=== PATIENT | male | born 1935 | race Caucasian/White ===

== ENCOUNTER → 2017-11-26 | Outpatient (CLI) | payer MEDICARE ==
--- NOTE | 2017-11-26 12:01 | KCIC ---
MRI of the cervical spine without contrast 11/26/2017 CLINICAL HISTORY: Imbalance with frequent falls for the last year. TECHNIQUE: Unenhanced T1-weighted, T2-weighted and inversion recovery sagittal and gradient echo and T2-weighted axial images of the cervical spine were obtained. FINDINGS: Mild lateral curvature of the cervical spine is seen convex to the right. There is reversal of the normal cervical lordosis. Degenerative signal changes are seen involving all of the disks of the cervical spine. Degenerative signal changes are seen within the marrow surrounding these discs. Loss of height of the C3-4, C4-5, C5-6 and C6-7 discs is noted. No area of abnormal signal intensity is seen involving the cervical spinal cord. At the C2-3 disc space there is a minimal generalized disc bulge. Degenerative changes are seen involving the uncovertebral and facet joints bilaterally. These findings do not result in significant central spinal canal or neural foraminal stenosis. At the C3-4 disc space there is a mild to moderate generalized disc bulge. Degenerative changes are seen involving the uncovertebral and facet joints bilaterally. These findings efface the anterior CSF resulting in mild central spinal canal stenosis without evidence of cord impingement. Mild to moderate bilateral neural foraminal stenosis is seen. At the C4-5 disc space there is a mild to moderate generalized disc bulge. Degenerative changes are seen involving the uncovertebral and facet joints bilaterally. These findings when combine efface the anterior and posterior CSF resulting in mild central spinal canal stenosis without evidence of cord impingement. Mild to moderate bilateral neural foraminal stenosis is seen. At the C5-6 disc space there is a mild to moderate generalized disc bulge. Degenerative changes are seen involving the uncovertebral and facet joints bilaterally. These findings do not result in significant central spinal canal stenosis. Mild left neural foraminal stenosis is seen. The right neural foramen is patent. At the C6-7 disc space there is a mild generalized disc bulge. Degenerative changes are seen involving the uncovertebral and facet joints bilaterally. These findings do not result in significant central spinal canal or neural foraminal stenosis. At the C7-T1 disc space there is a minimal generalized disc bulge. Degenerative changes are seen involving the facet joints bilaterally. These findings do not result in significant central spinal canal or neural foraminal stenosis. IMPRESSION: Degenerative changes are seen throughout the cervical spine. These findings result in mild central spinal canal stenosis at C3-4 and C4-5 without evidence of cord impingement. Mild to moderate bilateral neural foraminal stenosis is seen at C3-4 and C4-5. Mild left neural foraminal stenosis is seen at C5-6. No area of abnormal signal intensity is seen involving the cervical spinal cord. Electronically signed by: Patel Adair MD (11/26/2017 11:57 AM) [email or web address]
== END | disposition home or self-care (01) ==
LOC: KCIC MRI 10:40
PROVIDERS: ATTEND Physical Medicine & Rehabilitation
DX: R26.89 Other abnormalities of gait and mobility (principal); M47.892 Other spondylosis, cervical region; M48.02 Spinal stenosis, cervical region; Z91.81 History of falling
CPT/HCPCS: 72141

== ENCOUNTER → 2017-12-16 | Outpatient (CLI) | payer MEDICARE ==
[~2017-12-16] MED LIST: AMLO10TA6 PO; ATOR20TA58 PO; CHLO25TA PO; CLOP75TA PO; GADOBUTROL 10 MMOL/10 ML VIAL IV ONE; LEVO150T5 PO; LISI-130 PO; METF500T16 PO; METO-269 PO
--- NOTE | 2017-12-16 13:00 | KCIC ---
MRI Cervical Spine with and without contrast History: Cervical stenosis, unsteady gait getting worse Technique: Multiplanar, multi sequential pre and postcontrast MR imaging was performed of the cervical spine. Comparison: November 26, 2017 Findings: There is motion degradation for all image sequences including for repeated images. Cervical vertebral body stature and AP alignment are unchanged. There is again reversal of the lordotic curvature centered at C3-4. Cervical cord caliber is within normal limits without obvious expansile signal change, no significant enhancement. Accurate evaluation for subtle signal change is limited due to motion artifact. There is again moderate to severe degenerative disc disease at C4-5 and to a lesser degree at C3-4, C5-C6 and minimally C6-7. The is probable mild C3-4 endplate edema likely reactive/degenerative in etiology. There is no new abnormality of the cervical medullary junction. C2-C3: Spinal canal and neural foramina are adequate. There is facet degenerative change. C3-C4: There is again disc osteophyte complex. Central canal is likely borderline about 10 mm, similar. There is facet and uncovertebral degenerative change, again fairly severe narrowing of the neural foramina greater on the left. C4-C5: There is again disc osteophyte complex. Central canal is likely narrowed to about 8 to 9 mm as seen previously. There is bilateral facet degenerative change, also uncovertebral degenerative change. Neural foramina are poorly characterized, suspected moderate to severe neural foramina compromise bilaterally as seen previously. C5-C6: There is again disc osteophyte complex. Central canal is not significantly narrowed about 12 mm. There is bilateral facet and uncovertebral degenerative change, probable fairly severe left and at least moderate right neural foramina compromise as seen previously. C6-C7: There is negligible disc osteophyte complex. Spinal canal is adequate. There is facet degenerative change. The neural foramina are likely adequate. C7-T1: Spinal canal and neural foramina are adequate. Impression: 1. Exam is degraded by motion even for repeated images. There is again mild spinal stenosis C4-5. There is suspected more significant neural foramina compromise bilaterally at C3-4 and C4-5 and left greater than right at C5-C6 due to facet and uncovertebral degenerative change. There is again multilevel degenerative disc disease greatest at C4-5, to lesser degree C3-4, C5-6, C6-7. There is multilevel spondylosis. Electronically signed by: Maynor Ricardo MD (12/16/2017 12:57 PM) [email or web address]
--- NOTE | 2017-12-16 13:13 | KCIC ---
MRI Thoracic Spine without contrast History: Thoracic stenosis, unsteady gait getting worse Technique: Multiplanar, multi sequential noncontrast MR imaging was performed of the thoracic spine. Contrast: None Comparison: None Findings: Thoracic cord caliber is within normal limits without significant focal signal abnormality. There is no significant thoracic spinal stenosis. Thoracic vertebral body stature and AP alignment are within normal limits. There are negligible posterior protrusions T5-T6 through T8-T9. There is multilevel [id number] degenerative disc disease, greatest of mid to inferior thoracic levels. There is mild T8-9 and endplate edema likely reactive/degenerative in etiology. There is a likely hemangioma of the posterior right T12 vertebral bodies slightly hyperintense on all sequences. Also likely hemangioma as of T2 and T4 vertebral bodies. There are some tiny foci of increased STIR signal of the T8, T10, T5 vertebral bodies too small to otherwise accurately characterize 3 to 4 mm. There are large exophytic T2 hyperintense lesions of the visualized right kidney, largest up to at least 41 mm, more likely cysts. However there is also exophytic T2 hypointense lesion of the visualized left kidney about 11 mm. Impression: 1. There is no significant thoracic spinal stenosis or neural foramina compromise, no significant focal signal abnormality of the thoracic cord. 2. There is multilevel [id number] thoracic degenerative disc disease. 3. There are some tiny foci of marrow signal abnormality too small to otherwise characterize of the T5, T8, T10 vertebral bodies, tiny edematous marrow lesions not excluded. There are other hemangiomas of the thoracic vertebral bodies. These would be difficult to visualize on bone scan. Correlation with any history of malignancy is advised. Potentially short-term follow-up in 3-4 months could be beneficial to assess stability. 4. There is indeterminate lesion of the left kidney, kidneys not fully evaluated. Small solid mass is not excluded. Ultrasound evaluation versus pre and postcontrast CT evaluation is recommended. Electronically signed by: Maynor Ricardo MD (12/16/2017 1:10 PM) [email or web address]
--- NOTE | 2017-12-16 13:22 | KCIC ---
MRI Lumbar Spine without contrast History: Lumbar stenosis, unsteady gait getting worse Technique: Multiplanar, multi sequential noncontrast MR imaging was performed of the lumbar spine. Comparison: None Findings: Lumbar vertebral body stature is overall maintained. There is minimal posterior subluxation L4 relative L5. Conus terminates at T12. There is mild to moderate degenerative disc disease at L4-5 and L3-4, minimally L2-3. There is nonspecific heterogeneity of marrow signal. There is focus relative decreased T2 and T1 signal of the L5 vertebral body not associated with significant STIR hyperintense signal suggestive of nonspecific sclerosis. There is superior L4 Schmorl's node. There is L3-4 endplate edema likely reactive/degenerative in etiology. Kidneys are not fully evaluated. There is a focus of signal change near the posterior margin of the right kidney, uncertain if arises from the kidney although does not have cystic characteristics if does indeed arise from the right kidney, measures about 3 cm on the localizer. L1-L2: Spinal canal and neural foramina are adequate. L2-L3: There is negligible disc osteophyte complex and bulge. Neural foramina and spinal canal are adequate. L3-L4: There is minimal disc osteophyte complex and bulge. There is mild buckling of the ligamentum flavum. Spinal canal is overall adequate. Neural foramina are adequate. L4-L5: There is disc osteophyte complex and bulge superimposed on the posteriorly subluxed L4 vertebral body margin. While near, there is no significant displacement of the descending L5 nerve roots, spinal canal not significantly narrowed. There is mild buckling of the ligament flavum and facet hypertrophic change. There is minimal narrowing of the left neural foramen, moderate to severe narrowing greater distally on the right with contact exiting right L4 nerve root. L5-S1: Spinal canal and neural foramina are overall adequate. There is prominence of epidural fat in the lateral recesses bilaterally. Impression: 1. There is no significant lumbar spinal stenosis. Disc osteophyte complex and bulge at L4-5 is near descending L5 nerve roots without impingement. There is moderate to severe narrowing of the right L4-5 neural foramen, minimal narrowing on the left. There is mild to moderate degenerative disc disease L3-4 and L4-5. There is mild spondylosis. 2. There is indeterminate lesion along the posterior margin of the right kidney for which ultrasound evaluation or pre and postcontrast CT evaluation is recommended. Electronically signed by: Maynor Ricardo MD (12/16/2017 1:19 PM) [email or web address]
== END | disposition home or self-care (01) ==
LOC: KCIC MRI 09:54
PROVIDERS: ATTEND Neurological Surgery
DX: M48.02 Spinal stenosis, cervical region (principal); M50.321 Other cervical disc degeneration at C4-C5 level; M50.322 Other cervical disc degeneration at C5-C6 level; M50.323 Other cervical disc degeneration at C6-C7 level; M47.892 Other spondylosis, cervical region; M51.14 Intervertebral disc disorders with radiculopathy, thoracic region; M48.061 Spinal stenosis, lumbar region without neurogenic claudication; I10 Essential (primary) hypertension; Z79.01 Long term (current) use of anticoagulants; E11.9 Type 2 diabetes mellitus without complications
CPT/HCPCS: 72146; 72148; 72156; 82565; A9585

== ENCOUNTER → 2018-11-22 | Outpatient (CLI) | payer MEDICARE ==
[2018-11-05 15:00] VITALS: BP 136/60
[~2018-11-22] MED LIST changes: -AMLO10TA6 PO; +AMLO10TA8 PO; +ASPI81TA50 PO; -CHLO25TA PO; +CHLO25TA10 PO; +CHOL10003 PO; +CYAN-25 PO; -GADOBUTROL 10 MMOL/10 ML VIAL IV ONE; +TAMS0.4C97 PO
--- NOTE | 2018-11-22 15:29 | PAIN ---
DATE OF SERVICE: 11/22/2018 INITIAL CONSULTATION FOR PAIN CLINIC CHIEF COMPLAINT: Low back and right lower extremity pain. HISTORY OF PRESENT ILLNESS: This is an 83-year-old male who presents with history of pain in the low back and right leg for many years, worse over the past 6-8 months. The patient has done physical therapy. He has done some stretching and strengthening on his own and still doing exercise, also had some sacroiliac joint injections, which helped for a short period of time as well. The patient reports now the pain is worse with walking, standing, changing positions, radiating into the posterior gluteus, posterolateral thigh, lateral anterior thigh in the right side only and across the low back. The patient reports it is becoming more constant, is throbbing, aching, and shooting pain. The patient reports it awakens him from sleep only rarely, better with sitting or lying down, does not affect his bowel or bladder control, but does affect his ability to walk significantly using a walker or cane. He has a walker with him today. The patient reports hydrocodone helps as well. He has not tried any other medications at this time. The patient did have a CT scan of lumbar spine showing L3-L4 mild broad-based disk bulge, ligamentum flavum thickening and facet arthropathy causing mild spinal canal stenosis, no significant neural foraminal stenosis, L4-L5 shows broad-based disk bulge, a complement ligamentum flavum thickening and facet arthropathy causing moderate right-sided neural foraminal stenosis as well. The patient rates his disability rating from 0-10, 10 being the worst, is a 10 with family home responsibilities, recreation, occupation and sexual behavior, 6 with social activity, 4 with self-care and life support activities. The patient reports no loss of motor function, but significant fatigability in the right leg with standing, walking or any ambulation greater than about 5-10 minutes. PAST MEDICAL HISTORY: Significant for hearing loss. The patient wears hearing aids, also diet-controlled diabetes, hypothyroidism, status post radiation therapy. History of coronary artery bypass grafting and coronary artery disease. PREVIOUS SURGERY: Include cataract extractions, coronary artery bypass, thyroidectomy and cardiac stents placed in 2017 most recently. CURRENT MEDICATIONS: Include Plavix and it is complete, full and well documented on the patient's chart. ALLERGIES: The patient has no known drug allergies. FAMILY HISTORY: Significant for coronary artery disease and diabetes. SOCIAL HISTORY: The patient does not drink alcohol, does not smoke, does not use any illegal, illicit or recreational drugs. He is , lives with his spouse in [place], [place], is currently retired. REVIEW OF SYSTEMS: Positive for those items mentioned in history of present illness. All systems reviewed and otherwise negative. It is complete, full and well documented on the patient's chart. PHYSICAL EXAMINATION: VITAL SIGNS: The patient's blood pressure is 119/61, pulse 56, respirations 18, temperature is 97.9 degrees Fahrenheit. Height is 5 feet 9 inches and weight is 197 pounds. GENERAL: The patient is awake, alert, oriented, appropriate, very pleasant demeanor. The patient is accompanied by his spouse. HEENT: Head shows normocephalic, atraumatic. Extraocular movements are intact and symmetrical. The patient is wearing hearing aids. Oral cavity shows mucous membranes moist and pink. NECK: Shows anterior throat supple without palpable lymphadenopathy noted. Swallow reflex symmetrical. CHEST: Shows normal on inspection. Breath sounds are clear to auscultation bilaterally. HEART: Shows S1, S2 clear. No murmurs auscultated. ABDOMEN: Soft, nontender, nondistended. No palpable organomegaly is noted. No rebound or guarding demonstrated. BACK: Shows spine grossly in the midline. Normal appearing thoracic kyphosis, minor flattening of lumbar lordotic curvature. Lumbar paraspinous muscle shows symmetrical on inspection, with palpation shows some moderate tenderness diffusely bilaterally going in the low lumbar distribution, slightly more on the right than the left, but present bilaterally and again only mildly diffusely tender. The patient has good rotational motion of lumbar spine, both laterally greater than 10 degrees right and left as well as extension greater than 10 degrees, forward flexion 45 degrees without significant increase in pain. The patient's spinous processes as well as sacroiliac regions are nontender with palpation at the patient's sacrum. EXTREMITIES: Lower extremities show deep tendon reflexes at 2+ patellar, 1+ tendo-calcaneus tendons are equal. Motor exam is 5/5 with dorsiflexion, extension, quadriceps and hamstring flexion symmetrical. Peripheral pulses are 1+ posterior tibia. No peripheral edema is noted. Straight leg raise noted to be negative for reproduction of radicular pattern bilaterally. Gaenslen's and Bret's maneuvers are negative bilaterally as well. Lower extremities are warm and dry to touch, equal in color and appearance. He is able to stand. He has some difficulty getting out the chair and requires the arms of the chair to help support him when he is standing from a seated position. He does have a bit of a shuffling gait, does not appear to favor the right or left lower extremity significantly and he is using a walker, which he has with him in the office today to ambulate. SKIN: Shows warm and dry, good turgor. No edema. No sores, no rashes, but has significant bruising on the forearms bilaterally. IMPRESSION: 1. This is an 83-year-old male with several year history of low back and right lower extremity pain, worse over the past 6 months or so[address] 2. CT scan of lumbar spine as noted. 3. Diet-controlled diabetes. 4. Coronary artery disease, on anticoagulants. PLAN: Options were discussed with the patient and the patient's spouse who accompanies him to visit today including conservative medical managements, continued physical therapies, interventional technique. He would like to pursue interventional techniques. We discussed a lumbar epidural steroid injection using description as well as anatomical models to describe the procedure. 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 If deemed safe and appropriate, we will have him hold this and return for lumbar epidural steroid injection at that time, pending Cardiology clearance. In the meantime, we will try Medrol Dosepak. The patient was given instruction as well as side effects to be aware of with the medication and will follow up as scheduled. DARREL ELIZABETH MD DR: KODY/osvaldo JOB#: [id number] / [id number]
== END | disposition home or self-care (01) ==
LOC: PNCL 10:33
PROVIDERS: ATTEND Anesthesiology
DX: M54.5 Low back pain (principal); M79.604 Pain in right leg; E11.9 Type 2 diabetes mellitus without complications; I25.10 Atherosclerotic heart disease of native coronary artery without angina pectoris; E89.0 Postprocedural hypothyroidism; Z95.1 Presence of aortocoronary bypass graft; Z98.41 Cataract extraction status, right eye; Z98.42 Cataract extraction status, left eye; Z95.5 Presence of coronary angioplasty implant and graft; Z92.3 Personal history of irradiation
CPT/HCPCS: G0463

== ENCOUNTER → 2018-12-08 | Outpatient (CLI) | payer MEDICARE ==
[2018-11-05 15:00] VITALS: BP 136/60
[~2018-12-08] MED LIST changes: +HYDR-2761 PO; +IOHEXOL 180 MG/ML 10 ML VIAL. ONE; +methylPREDNISolone ACETATE 40 MG/ML VIAL. ONE; +methylPREDNISolone ACETATE 80 MG/ML VIAL. ONE
--- NOTE | 2018-12-08 10:14 | PAIN ---
DATE OF SERVICE: 12/08/2018 PROGRESS NOTE FOR PAIN CLINIC DIAGNOSIS: Lumbar radiculopathy with lumbar degenerative disk disease. HISTORY OF PRESENT ILLNESS: The patient is an 83-year-old male who returns for followup status post initial evaluation and clearance to hold his Plavix, he had been off this for 7 days now, returns reporting still significant pain in the low back and right lower extremity, significantly better with Medrol Dosepak, but once it wore off, the pain returned to his baseline level. The patient reports pain in the low back, right lower extremity, posterior gluteus, posterolateral thigh, lateral anterior thigh, medial thigh and medial lower leg on the right side with walking, standing, changing positions. The patient reports it awakens him about twice a night from sleep. He is increasing his walking distance with Medrol Dosepak, but once it wore off his pain was returned. The patient reports his pain is 10 on a scale of 10 at its worst, 9 on average and 9 at its least and is a 9 today. The patient reports no new motor or sensory deficits, no new bowel or bladder incontinence or other complaints. PHYSICAL EXAMINATION: VITAL SIGNS: The patient's blood pressure is 155/117, pulse 72, respirations 16, temperature is 98.0 degrees Fahrenheit, weight is 202 pounds. GENERAL: The patient is awake, alert, oriented, appropriate, very pleasant demeanor. HEENT: Shows normocephalic, atraumatic. Extraocular movements are intact and symmetrical. Oral cavity: Mucous membranes moist and pink. Dentition is intact. NECK: Shows anterior throat supple without palpable lymphadenopathy noted. Swallow reflex symmetrical. CHEST: Shows normal on inspection. Breath sounds clear to auscultation bilaterally. HEART: Shows S1, S2 clear. No murmurs auscultated. ABDOMEN: Soft, nontender, nondistended. No palpable organomegaly is noted. No rebound or guarding demonstrated. BACK: Shows spine grossly in the midline. Normal appearing thoracic kyphosis and lumbar lordotic curvature. Lumbar paraspinous muscle shows symmetrical on inspection, with palpation shows some moderate tenderness diffusely, but only diffusely bilaterally without radiation. EXTREMITIES: The patient's lower extremities show deep tendon reflexes 2+ in the patella, 1+ tendo-calcaneus tendons. Motor exam is strong with 5/5 dorsiflexion and extension. Peripheral pulses are 1+ posterior tibia. No peripheral edema is noted bilaterally. Options were discussed with the patient. The patient's old chart was reviewed as his current medication regimen updated. Current review of systems updated today as well. We will proceed with a lumbar epidural steroid injection today with fluoroscopic guidance. Risks were again discussed including but not limited to bleeding, infection, possibility of epidural hematoma, subsequent neurological compromise, dural puncture, headaches, spinal cord and/or nerve damage, side effects of steroid medication and poor results regarding pain control. The patient understands and wished to proceed. The patient will return to the clinic in approximately 2 weeks for followup. He is counseled on return appointment, activity level and side effects to be aware of. DIAGNOSIS: Lumbar radiculopathy with lumbar degenerative disk disease. PROCEDURE: Lumbar epidural steroid injection, translaminar approach at L4-L5 level using C-arm fluoroscopic guidance under sterile prep and drape using local anesthetic. MEDICATION INJECTED: A total of 120 mg Depo-Medrol plus 10 mL of preservative-free normal saline and 2 mL of contrast. CONDITION AT DISCHARGE: Stable. The patient tolerated the procedure well, had no complications. DARREL ELIZABETH MD DR: KODY/osvaldo JOB#: [id number] / [id number]
== END ==
LOC: PNCL 08:05
PROVIDERS: ATTEND Anesthesiology
DX: M51.16 Intervertebral disc disorders with radiculopathy, lumbar region (principal)
CPT/HCPCS: 62323; J1030; J1040; Q9965

== ENCOUNTER → 2018-12-22 | Outpatient (CLI) | payer MEDICARE ==
[2018-11-05 15:00] VITALS: BP 136/60
[~2018-12-22] MED LIST changes: -HYDR-2761 PO
--- NOTE | 2018-12-22 09:49 | PAIN ---
DATE OF SERVICE: 12/22/2018 PROGRESS NOTE FOR PAIN CLINIC DIAGNOSES: Lumbar radiculopathy with lumbar degenerative disk disease. HISTORY OF PRESENT ILLNESS: The patient is an 83-year-old male who returns for followup status post lumbar epidural steroid injection x 1. The patient reports about 1 day of near 100% improvement, but after that there was only about 75% improvement after the second day. After that about a week later, the pain began to return in his low back and right lower extremity as it was previously. The patient reports it has not been awakening him from sleep at night, but he does not sleep well. The patient reports no new motor or sensory deficits, no new bowel or bladder incontinence. Rates his pain as a 7 on a scale of 10 at its worst over the past week, 6 on average, 3 at its least and it is 6 today. The patient reports it is dull, aching, on and off in intensity, worse with walking and standing, much better with sitting and lying down, into the low back, right posterior gluteus, posterior lateral thigh, lateral anterior thigh, medial thigh on the right. The patient reports no new motor or sensory deficits, no new bowel or bladder incontinence. He has been off of his Plavix now for 8 days. PHYSICAL EXAMINATION: VITAL SIGNS: The patient's blood pressure is 158/91, pulse 69, respirations 16, temperature 97.4 degrees Fahrenheit, weight is 196 pounds. GENERAL: The patient is awake, alert, oriented, appropriate, very pleasant demeanor. HEENT: Shows normocephalic, atraumatic. Extraocular movements are intact and symmetrical. Oral cavity: Mucous membranes moist and pink. Dentition is intact. NECK: Shows anterior throat supple without palpable lymphadenopathy noted. Swallow reflex symmetrical. CHEST: Shows normal on inspection. Breath sounds are clear to auscultation bilaterally. HEART: Shows S1, S2 clear. No murmurs auscultated. ABDOMEN: Soft, nontender, nondistended. No palpable organomegaly is noted. No rebound or guarding demonstrated. BACK: Shows spine grossly in the midline. Normal appearing thoracic kyphotic curvature and some flattening of lumbar lordotic curvature. Lumbar paraspinous muscle shows symmetrical on inspection, on palpation shows some moderate tenderness diffusely bilaterally, only diffusely without significant radiation. The patient shows good rotational motion of lumbar spine, both laterally as well as extension and flexion without difficulty. EXTREMITIES: Lower extremities show deep tendon reflexes at 2+ in the patella, 1+ tendocalcaneus tendons. Motor exam is approximately 5 on a scale of 5 bilaterally and equal. Peripheral pulses are 1+ posterior tibia. No peripheral edema is noted. Options were discussed with the patient. The patient's old chart was reviewed as his current medication regimen updated. Current review of systems updated today as well. We will proceed with a lumbar epidural steroid injection today, the second in the series with fluoroscopic guidance. Risks were again discussed including, but not limited to bleeding, infection, possibility of epidural hematoma, subsequent neurological compromise, dural puncture, headaches, spinal cord and/or nerve damage, side effects of steroid medication and poor results regarding pain control. The patient understands and wished to proceed. The patient will return to clinic in approximately 2 weeks for followup. She was counseled as to return appointment, activity level and side effects to be aware of. DIAGNOSIS: Lumbar radiculopathy with lumbar degenerative disk disease. PROCEDURE: Lumbar epidural steroid injection, translaminar approach, at L4-L5 level using C-arm fluoroscopic guidance under sterile prep and drape using local anesthetic. MEDICATION INJECTED: A total of 120 mg of Depo-Medrol plus 10 mL of preservativefree normal saline and 2 mL of contrast. CONDITION AT DISCHARGE: Stable. The patient tolerated the procedure well, had no complications. DARREL ELIZABETH MD DR: KODY/osvaldo JOB#: [id number] / [id number]
== END ==
LOC: PNCL 07:53
PROVIDERS: ATTEND Anesthesiology
DX: M51.16 Intervertebral disc disorders with radiculopathy, lumbar region (principal)
CPT/HCPCS: 62323; J1030; J1040; Q9965

== ENCOUNTER → 2019-01-12 | Outpatient (CLI) | payer MEDICARE ==
[2018-11-05 15:00] VITALS: BP 136/60
[~2019-01-12] MED LIST changes: +HYDR-2761 PO
--- NOTE | 2019-01-12 12:54 | PAIN ---
DATE OF SERVICE: 01/12/2019 PROGRESS NOTE FOR PAIN CLINIC DIAGNOSES: Lumbar radiculopathy with lumbar degenerative disk disease. HISTORY OF PRESENT ILLNESS: The patient is an 83-year-old male who returns for followup status post lumbar epidural steroid injection x 2. The patient reports about 50% improvement until the last 3 days, the pain is returning in the low back and right side. The patient reports it is 10 on a scale of 10 at its worst over the past week, 9 on average, 0 with pain medication and is 9 today. The patient reports it is cramping and tight in the low back and radiating, shooting and burning in to the right leg, posterior gluteus, lateral thigh, anterior thigh on the right. The patient reports at its worst over the past 3 days, worse with walking, standing, changing positions. Before that, he was doing much better with distance walking, doing household activities, traveling with greater ease and comfort and would not awaken him from sleep at night. The patient reports no new motor or sensory deficits, no new bowel or bladder incontinence or other complaints. PHYSICAL EXAMINATION: VITAL SIGNS: The patient's blood pressure is 106/57, pulse is 61, respirations are 16, temperature 97.7 degrees Fahrenheit, weight is 199 pounds. GENERAL: The patient is awake, alert, oriented, appropriate, very pleasant demeanor. HEENT: Shows normocephalic, atraumatic. Extraocular movements are intact and symmetrical. Oral cavity: Mucous membranes moist and pink. Dentition is intact. NECK: Shows anterior throat supple without palpable lymphadenopathy noted. Swallow reflex symmetrical. CHEST: Shows normal on inspection. Breath sounds are clear bilaterally. HEART: Shows S1, S2 clear. No murmurs auscultated. ABDOMEN: Soft, nontender, nondistended. No palpable organomegaly is noted. No rebound or guarding demonstrated. BACK: Shows spine grossly in the midline. Slight exaggeration of thoracic kyphosis, some minor flattening of lumbar lordotic curvature. Lumbar paraspinous muscle shows symmetrical on inspection, with palpation shows some moderate tenderness diffusely bilaterally, but only diffusely without significant radiation. The patient has good rotational motion of lumbar spine both laterally as well as extension and flexion without significant difficulty. EXTREMITIES: The patient's lower extremities show deep tendon reflexes at 2+ in the patellar, 1+ tendo-calcaneus tendons. Motor exam is strong with 5/5 dorsiflexion, extension, equal. Peripheral pulses are 1+ posterior tibia. No peripheral edema is noted bilaterally. Options were discussed with the patient. The patient's old chart was reviewed as his current medication regimen updated. Current review of systems updated today as well. We will proceed with a third in the series of lumbar epidural steroid injection today with fluoroscopic guidance. Risks were again discussed including, but not limited to bleeding, infection, possibility of epidural hematoma, subsequent neurological compromise, dural puncture, headaches, spinal cord and/or nerve damage, side effects of steroid medication and poor results regarding pain control. The patient understands and wished to proceed. The patient will return to clinic in approximately 2 weeks for followup. He was counseled on return appointment, activity level and side effects to be aware of. DIAGNOSES: Lumbar radiculopathy with lumbar degenerative disk disease. PROCEDURE: Lumbar epidural steroid injection, translaminar approach at L4-L5 level using C-arm fluoroscopic guidance under sterile prep and drape using local anesthetic. MEDICATION INJECTED: A total of 120 mg Depo-Medrol plus 10 mL of preservative-free normal saline and 2 mL of contrast. CONDITION AT DISCHARGE: Stable. The patient tolerated the procedure well, had no complications. DARREL ELIZABETH MD DR: KODY/osvaldo JOB#: [id number] / [id number]
== END ==
LOC: PNCL 07:50
PROVIDERS: ATTEND Anesthesiology
DX: M51.16 Intervertebral disc disorders with radiculopathy, lumbar region (principal)
CPT/HCPCS: 62323; J1030; J1040; Q9965